=== PATIENT | female | born 1980 | race Caucasian/White ===

== ENCOUNTER 2018-04-29 22:05 | Inpatient (IN) | payer OTHER ==
[2018-04-29 23:01] VITALS: BMI 31.4
[2018-04-30 00:08] LABS: HEMOGLOBIN 12.4 g/dL (12.0-16.0); MEAN CELL VOLUME 92.1 fl (81.0-99.0); MEAN CORPUSCULAR HEMOGLOBIN 31.3 pg (27.0-31.0); RBC 3.97 Mil/uL (3.80-5.20); RED CELL DISTRIBUTION WIDTH 14.4 % (11.5-14.5); WHITE BLOOD COUNT 11.7 K/uL (4.8-10.8)
[2018-04-30] MEDS: Lactated Ringer's 1,000 ML IV SCH ×2 (02:00→03:00)
[2018-04-30] MEDS ORDERED: Fentanyl/Bupivacaine HCl 250 ML EPI ONE (02:44)
--- NOTE | 2018-04-30 02:44 | OBADHP ---
Datetime: 04/30/2018 00:01 Pelvic Type - PN: Adequate Extremities - PN: Normal Abdomen - PN: Normal Back - PN: Normal Breast - PN: Normal Lungs - PN: Normal Heart - PN: Normal Thyroid - PN: Normal Neurologic - PN: Normal HEENT - PN: Normal General - PN: Normal IP Hx Assessment: The History has been Reviewed and is Current IP Chief Complaint: Uterine contractions; Suspected ruptured membranes Dilatation, Provider: 0 Genitourinary Exam: Normal DTRs - PN: Normal IP Adm Impression: Term, intrauterine ; No Active Labor; Ruptured Membranes IP Admit Plan: Admit to unit; Initiate labor induction protocol Datetime: 04/29/2018 23:09 Admit Comment, IP Provider: This is 37 yo 38.5wk present to [facility] due to ROM at 20:00 04/29/2018 . Pt state that she felt fluid passing by her legs and kept flowing for 1-2h. Pt also report a small spotting when she went to bathroom after the waterflow stopped. Pt denies contraction, trauma, or fal ls. Pt have no other complain at moment. Pt denies V/N, SOB chest pain, Or abd pain. Pt denies any complication during this Allegery: none Med: PNV, Synthroid 75mcg PMH: Hypothyriod PFH:none PSH: none Social : no smoke, drink or drug use ROS : all negative except HPI Assessment: Pt is 37 yo f present to [facility] due ROM. Admitted for induction Pt is lying comfortable in bed with no acute distress vitals wnl strip reassuring Will order CBC with differential type and cross LR ringer 500ml push and 1L of 125ml monitor strip and vital Q4 Order pitocin for after delivery of placenta Call anesthesia Case discussed with Dr Rosangela Garcia PGY1 OB Hospitalist note. Pt seen adn examined with PGY1. Agree with note: Term preg, AMA, hypothyroi disim, SROM not in labor...discussion with patient about SROM, IOL, medicatoins and pain managment. M AHNDO Presentation-Admit: Vertex FHR - Baseline A Provider: 140 Amniotic Fluid Color, Provider: Clear Membranes, Provider: Ruptured Contraction Comments Provider: occ Comments, ACOG Physical Exam: Pt is seen and examined at bedtime cardio s1/s2 heard Lung : clear all quadrant Abd : BS+ nontender Extremities: no calf tenderness Gestation - Est Wks by US: 38.5 Pool Provider: Positive Vital Signs Provider: Reviewed; Within Normal Limits NICHD Variability Prov Fetus A: Moderate 6-25bpm NICHD Accel Fetus A IP Provider: [id number] FHR Category Provider Fetus A: Category I NICHD Decel Fetus A IP Provider: None Effacement, Provider: LONG Station, Provider: HIgh EGA AdmitDate IP: 38.5
--- NOTE | 2018-04-30 02:47 | OBADHP ---
Datetime: 04/30/2018 00:01 Admit Comment, IP Provider: This is 37 yo 38.5wk present to [facility] due to ROM at 20:00 04/29/2018 . Pt state that she felt fluid passing by her legs and kept flowing for 1-2h. Pt also report a small spotting when she went to bathroom after the waterflow stopped. Pt denies contraction, trauma, or fal ls. Pt have no other complain at moment. Pt denies V/N, SOB chest pain, Or abd pain. Pt denies any complication during this Allegery: none Med: PNV, Synthroid 75mcg PMH: Hypothyriod PFH:none PSH: none Social : no smoke, drink or drug use ROS : all negative except HPI Assessment: Pt is 37 yo f present to [facility] due ROM. Admitted for induction Pt is lying comfortable in bed with no acute distress vitals wnl strip reassuring Will order CBC with differential type and cross LR ringer 500ml push and 1L of 125ml monitor strip and vital Q4 Order pitocin for after delivery of placenta Call anesthesia Case discussed with Dr Rosangela Garcia PGY1 OB Hospitalist note. Pt seen adn examined with PGY1. Agree with note: Term preg, AMA, hypothyroi disim, SROM not in labor...discussion with patient about SROM, IOL, medicatoins and pain managment. M AHNDO Presentation-Admit: Vertex Amniotic Fluid Color, Provider: Clear Membranes, Provider: Ruptured Pool Provider: Positive Vital Signs Provider: Reviewed; Within Normal Limits FHR Category Provider Fetus A: Category I NICHD Decel Fetus A IP Provider: None EGA AdmitDate IP: 38.6
[2018-04-30] MEDS ORDERED: Oxytocin 30 units/LR 500ML 30 UNITS/500 ML BAG IV ONE (03:07)
[2018-04-30] MEDS ORDERED: Lactated Ringer's 1,000 ML IV SCH (04:00)
[2018-04-30] MEDS ORDERED: LIDOCAINE 2% 10ML 20 MG/ML VIAL IJ ONE (06:15)
[2018-04-30] MEDS ORDERED: Oxycodone/Acetaminophen 5/325 mg Tab PO PRN (07:20)
[2018-04-30] MEDS ORDERED: Benzocaine/Menthol SPRAY TOP PRN (07:20)
--- NOTE | 2018-04-30 08:01 | OBDS ---
DELIVERY PERSONNEL Delivery Doctor: Radha Adames DO Storage Garage Manager: Walter Vickers RN Anesthesiologist: De Farley MD Resident: MATERNAL INFORMATION Delivery Anesthesia: Local; Epidural Medications in Delivery: PITOCIN 30 UNITS IN 500 ML LR Estimated Blood Loss (ml): 200 Placenta Cultured: No Maternal Complications: None Provider Comments: Over intact perineum, of live . was crying spontaneously. Del ayed cord clamp. It was clamped and cut by father. was placed on mother's chest for ski to s kin. Placenta delivered intact spontaneously. EBL 200cc. She remained stable. LABOR SUMMARY EDC: 05/08/2018 00:00 No. Babies in Womb: 1 Attempted: No Labor Anesthesia: Epidural LABOR INFORMATION Reason for Induction: Not Applicable Onset of Labor: 04/30/2018 02:00 Complete Dilatation: 04/30/2018 04:40 Cervical Ripening Agents: Cytotec @ Oxytocin: N/A Group B Beta Strep: Negative Antibiotics # of Doses: 0 Steroids Given: None Reason Steroids Not Administered: Not Applicable MEMBRANES Membranes Rupture Method: Spontaneous Rupture of Membranes: 04/29/2018 20:00 Length of Rupture (hrs): 10.67 Amniotic Fluid Color: Clear Amniotic Fluid Amount: Moderate Amniotic Fluid Odor: Normal STAGES OF LABOR Stage 1 hrs: 2 Stage 1 min: 40 Stage 2 hrs: 2 Stage 2 min: 0 Stage 3 hrs: 0 Stage 3 min: 20 Total Time in Labor hrs: 5 Total Time in Labor min: 0 VAGINAL DELIVERY Episiotomy: None Laceration Extension: Second Degree Laceration Type: Perineal Laceration Repair: Yes Laceration Repair Note: 2% Lidocaine was infiltrated. 2.0 and 3.0 Vicryl Rapide suture was used t o repair perineum. Initial Vag Sponge Count: 5 Final Vag Sponge Count: 5 Initial Vag Sharps Count: 3 Final Vag Sharps Count: 3 Sponge Count Correct: Yes; Vaginal Sweep Performed Sharps Count Correct: Yes BABY A INFORMATION Infant Delivery Date/Time: 04/30/2018 06:40 Method of Delivery: Vaginal Born in Route : No : N/A Forceps: N/A Vacuum Extraction: N/A Shoulder Dystocia : No SHOULDER DYSTOCIA BABY A Delivery Date/Time: 04/30/2018 06:40 PRESENTATION/POSITION BABY A Presentation: Breech Cephalic Presentation: Vertex Breech Presentation: N/A PLACENTA INFORMATION BABY A Placenta Delivery Time : 04/30/2018 07:00 Placenta Method of Delivery: Spontaneous Placenta Status: Delivered SCORES BABY A Heart Rate 1 min: >100 bpm Resp Effort 1 min: Good Cry Reflex Irritability 1 min: Cough or Sneeze or Pulls Away Muscle Tone 1 min: Active Motion Color 1 min: Body [place], Extremities Blue Resuscitation Effort 1 min: Tactile Stimulation SCORE 1 MIN: 9 Heart Rate 5 min: >100 bpm Resp Effort 5 min: Good Cry Reflex Irritability 5 min: Cough or Sneeze or Pulls Away Muscle Tone 5 min: Active Motion Color 5 min: Body [place], Extremities Blue Resuscitation Effort 5 min: N/A SCORE 5 MIN: 9 INFORMATION BABY A Gestational Age at Delivery: 39.0 Gestational Status: Term Infant Outcome : Liveborn Condition : Stable Infant Sex: Male IDENTIFICATION/MEDS BABY A ID Band Location: Left Leg; Left Arm WEIGHT/LENGTH BABY A Birthweight (gms): 3720 Infant Weight (lb): 8 Weight (oz): 3 CORD INFORMATION BABY A No. Cord Vessels: 3 Nuchal Cord : N/A Suction: None
[2018-04-30] MEDS: Multivitamin With Minerals Tab PO SCH (17:39)
[2018-05-01 06:14] LABS: BASO % 0.3 % (0.0-2.0); EOS # 0.1 K/uL (0.0-0.7); EOS % 0.9 % (0.0-4.0); HEMOGLOBIN 10.4 g/dL (12.0-16.0); LYMPH # 3.3 K/uL (1.0-4.3); LYMPH % 24.3 % (20.0-40.0); MEAN CELL VOLUME 92.1 fl (81.0-99.0); MEAN CORPUSCULAR HEMOGLOBIN 30.4 pg (27.0-31.0); MEAN CORPUSCULAR HGB CONC 33.1 g/dL (33.0-37.0); MEAN PLATELET VOLUME 9.9 fl (7.2-11.7); MONO # 0.8 K/uL (0.0-0.8); MONO % 6.1 % (0.0-10.0); NEUT # 9.3 K/uL (1.8-7.0); NEUT % 68.4 % (50.0-75.0); RBC 3.41 Mil/uL (3.80-5.20); RED CELL DISTRIBUTION WIDTH 14.6 % (11.5-14.5); WHITE BLOOD COUNT 13.6 K/uL (4.8-10.8)
[2018-05-01] MEDS ORDERED: Levothyroxine 75 MCG TAB PO SCH (06:30)
[2018-05-01] MEDS: Multivitamin With Minerals Tab PO SCH (08:10)
[2018-05-01] MEDS ORDERED: Oxycodone/Acetaminophen 5/325 mg Tab PO PRN (17:06)
[2018-05-01] MEDS ORDERED: Benzocaine/Menthol SPRAY TOP PRN (17:06)
--- NOTE | 2018-05-01 19:40 | OBPPN ---
Datetime: 05/01/2018 19:38 PP Pain Prov: Within normal limits PP Nausea Prov: Denies PP Flatus Prov: Yes PP BM Prov: No PP Breasts Prov: Normal PP Heart Prov: Normal PP Lungs Prov: Normal PP Abdomen/Uterus Prov: Normal PP Lochia Prov: Normal PP Vulva/Perineum Prov: Normal PP CVA Tenderness Prov: Normal PP Extremities Prov: Normal PP Comments Phys Exam Prov: Uterus firm, below umbilicus Abdomen soft, nontender, nondistended No deep Tenderness bilaterally PP Progress Note Prov: day #1 status post , patient recovering well Patient out of bed and ambulating Regular diet Pain control CBC Intermittent Compression stockings while in bed Vital Signs Provider PP: Reviewed; Within Normal Limits
[2018-05-02] MEDS ORDERED: Levothyroxine 75 MCG TAB PO SCH (06:30)
[2018-05-02] MEDS ORDERED: Multivitamin With Minerals Tab PO SCH (09:00)
--- NOTE | 2018-05-02 11:11 | OBDCSUM ---
Datetime: 05/02/2018 11:09 Discharged to, Provider: Home Follow up at, Provider: OB Clinician Disch Instr Activity: Normal activity Disch Instr Diet: Regular Discharge Instructions, Provider: Routine instructions given Discharge Diagnosis, Provider: Term Delivered Discharge Time: 05/09/2018 11:10 Follow up in weeks, Provider: 4-6 weeks Disch Referrals: None Contraception discussed, Prov: Yes Discharge Comment, Provider: S/P , Clinically Stable Discharge Diagnosis Prov Other: S/P , Clinically Stable
[2018-05-02 19:55] VITALS: BP 121/76; PULSE 85; RESP 18; TEMP 98.3; O2SAT 99
== END 2018-05-02 14:40 | disposition home or self-care (01) | DRG 775 ==
LOC: H.EROB2 22:05 → H.L&D 04-30 00:01 → H.OB/GYN 04-30 11:50
PROVIDERS: ADMIT Obstetrics & Gynecology; ATTEND Obstetrics & Gynecology
PROC: 10E0XZZ Delivery of Products of Conception, External Approach (ICD-10-PCS; principal; 2018-04-30)
PROC: 0KQM0ZZ Repair Perineum Muscle, Open Approach (ICD-10-PCS; 2018-04-30)
PROC: 4A1HXCZ Monitoring of Products of Conception, Cardiac Rate, External Approach (ICD-10-PCS; 2018-04-30)
DX: O70.1 Second degree perineal laceration during delivery (principal); Z37.0 Single live birth; Z3A.39 39 weeks gestation of pregnancy